=== PATIENT | male | born 1935 | race Caucasian/White ===

== ENCOUNTER → 2019-09-20 11:30 | Outpatient (CLI) | payer MEDICARE, SELFPAY ==
[2019-09-20 11:22] VITALS: BMI 22.2
--- NOTE | 2019-09-20 11:31 | RAD_ITS ---
STUDY: X-RAY - PELVIS AND RIGHT HIP REASON FOR EXAM: Male, 84 years old. Follow today''s ago. Pain. TECHNIQUE: 3 views of the pelvis and hip. COMPARISON: None. FINDINGS: There is a non-specific bowel gas pattern. Postsurgical changes in the pelvis. Phleboliths. Normal bilateral iliac wings, sacroiliac joints and visualized sacrum. Normal bilateral superior and inferior pubic rami. Normal pubic symphysis. Normal bilateral ischial tuberosities. Mild arthrosis of both hips. RAD/HIP, UNI W/ Pelvis 2-3 Views IMPRESSION: Mild arthrosis of both hips. No acute finding. Electronically Signed: Siddharth Dc MD at 12:09 EST , Service support ,
== END ==
PROVIDERS: Family Provider Family Medicine; PCP Family Medicine; Referring Provider Physician Assistant; Visit Provider Physician Assistant
DX: M25.551 Pain in right hip (principal)
CPT/HCPCS: 73502